=== PATIENT | male | born 1955 | race Caucasian/White ===

== ENCOUNTER 2018-04-24 17:04 | Emergency (ER) | payer OTHER ==
--- NOTE | 2018-04-24 18:54 | RAD REPORT ---
EXAM DESCRIPTION: RAD - Knee Left 3 View - 04/24/2018 6:44 pm CLINICAL HISTORY: PAIN History of fall COMPARISON: <Comparisons> FINDINGS: Small suprapatellar joint effusion is seen. No acute fracture or dislocation. Patellar ent hesophytes noted. IMPRESSION: No acute finding demonstrated. A small suprapatellar joint effusion is present.
--- NOTE | 2018-04-24 19:10 | ER ---
Nurse's Notes [facility] Name: Sumeet Chapman Age: 62 yrs Sex: Male : 1955 Arrival Date: 04/24/2018 Time: 17:05 Bed 14 Private MD: Diagnosis: Pain in left knee Presentation: 04/24 17:32 Presenting complaint: Patient states: I fell about a week ago, walking down some steps sg and the step was busted and made me fall down on my left knee. Transition of care: patient was not received from another setting of care. Onset of symptoms was April 24, 2018. Risk Assessment: Do you want to hurt yourself or someone else? Patient reports no desire to harm self or others. Initial Sepsis Screen: Does the patient have a suspected source of infection? No. Patient's initial sepsis screen is negative. Care prior to arrival: None. 17:32 Method Of Arrival: Ambulatory 17:32 Acuity: DAVE 4 sg Triage Assessment: 19:00 General: Appears in no apparent distress. comfortable, Behavior is calm, cooperative, jb4 appropriate for age. Historical: - Allergies: 17:09 SHELLFISH; sg - PMHx: 17:09 Diabetes - IDDM; DVT; Myocardial infarction; sg - PSHx: 17:09 CABG; sg - Immunization history:: Adult Immunizations up to date. - Social history:: Smoking status: Patient/guardian denies using tobacco. - Ebola Screening: : Patient negative for fever greater than or equal to 101.5 degrees Fahrenheit, and additional compatible Ebola Virus Disease symptoms Patient denies exposure to infectious person Patient denies travel to an Ebola-affected area in the 21 days before illness onset No symptoms or risks identified at this time. Screenin:00 Abuse screen: Denies threats or abuse. Nutritional screening: No deficits noted. jb4 Tuberculosis screening: No symptoms or risk factors identified. Fall Risk None identified. Assessment: 19:00 General: Appears in no apparent distress. comfortable, Behavior is calm, cooperative, jb4 appropriate for age. Pain: Complains of pain in medial aspect of left knee and left knee Pain does not radiate. Pain currently is 4 out of 10 on a pain scale. Quality of pain is described as throbbing, Pain began 2-3 days ago. Is intermittent. Neuro: Level of Consciousness is awake, alert, obeys commands, Oriented to person, place, time, situation. Cardiovascular: Patient's skin is warm and dry. Respiratory: Airway is patent Respiratory effort is even, unlabored, Respiratory pattern is regular, symmetrical. GI: No signs and/or symptoms were reported involving the gastrointestinal system. : No signs and/or symptoms were reported regarding the genitourinary system. EENT: No signs and/or symptoms were reported regarding the EENT system. Derm: Skin is intact, Skin is pink, warm \T\ dry. Musculoskeletal: Circulation, motion, and sensation intact. Vital Signs: 17:33 BP 149 / 71; Pulse 72; Resp 18; Temp 97.7; Pulse Ox 96% on R/A; Weight 140.61 kg (R); sg Height 6 ft. 1 in. (185.42 cm); Pain 7/10; 19:00 BP 151 / 78; Pulse 76; Resp 18; Pulse Ox 100% on R/A; jb4 17:33 Body Mass Index 40.90 (140.61 kg, 185.42 cm) ED Course: 17:05 Patient arrived in ED. mr 17:10 Arm band placed on. sg 17:33 Triage completed. sg 17:36 Sergio Bartlett PA is PHCP. cp 17:36 Kirk Martinez MD is Attending Physician. cp 18:44 XRAY Knee LEFT 3 view In Process Unspecified. EDMS 19:00 Patient has correct armband on for positive identification. Bed in low position. Call jb4 light in reach. Side rails up X 1. Pulse ox on. NIBP on. 19:00 No provider procedures requiring assistance completed. Patient did not have IV access jb4 during this emergency room visit. Crutch training done. Knee immobilizer applied on left knee. 19:01 Prem Gaming, RN is Primary Nurse. jb4 19:09 Isrrael Carrasco MD is Referral Physician. cp Administered Medications: No medications were administered Outcome: 19: Discharge ordered by . cp 19:25 Discharged to home ambulatory. jb4 19:25 Condition: stable 19:25 Discharge instructions given to patient, Instructed on discharge instructions, follow up and referral plans. crutch walking, Demonstrated understanding of instructions, follow-up care, crutch walking. 19:30 Patient left the ED. jb4 Signatures: Dispatcher [employer] EDMS Wayne Nunezen, RN RN sg Lencho, Yola mr Sergio Bartlett PA PA cp Bryson, James RN RN jb4
--- NOTE | 2018-04-24 19:10 | EDPHYS ---
Physician Documentation [facility] Name: Sumeet Chapman Age: 62 yrs Sex: Male : 1955 Arrival Date: 04/24/2018 Time: 17:05 Bed 14 Private MD: ED Physician Kirk Martinez HPI: 04/24 17:55 This 62 yrs old Male presents to ER via Ambulatory with complaints of Knee cp Pain. 17:55 The patient presents with an injury, pain, that is acute, swelling, tenderness. cp 17:55 The complaints affect the left knee. Context: resulted from the patient falling, down cp stairs, the patient can fully bear weight, the patient is able to ambulate, with moderate difficulty. Onset: The symptoms/episode began/occurred 1 week(s) ago. Modifying factors: the symptoms are aggravated by weight bearing, bending knee. Associated signs and symptoms: Pertinent positives: swelling, Pertinent negatives calf tenderness, numbness, tingling, warmth, weakness. Historical: - Allergies: 17:09 SHELLFISH; sg - PMHx: 17:09 Diabetes - IDDM; DVT; Myocardial infarction; sg - PSHx: 17:09 CABG; sg - Immunization history:: Adult Immunizations up to date. - Social history:: Smoking status: Patient/guardian denies using tobacco. - Ebola Screening: : Patient negative for fever greater than or equal to 101.5 degrees Fahrenheit, and additional compatible Ebola Virus Disease symptoms Patient denies exposure to infectious person Patient denies travel to an Ebola-affected area in the 21 days before illness onset No symptoms or risks identified at this time. ROS: 18:00 Constitutional: Negative for body aches, chills, fever. cp 18:00 Eyes: Negative for injury, pain, redness, and discharge. cp 18:00 ENT: Negative for drainage from ear(s), ear pain, sore throat, difficulty swallowing, difficulty handling secretions. 18:00 Cardiovascular: Negative for chest pain, palpitations. 18:00 Respiratory: Negative for cough, shortness of breath, wheezing. 18:00 Abdomen/GI: Negative for abdominal pain, vomiting, diarrhea, constipation. 18:00 Back: Negative for pain at rest, pain with movement. 18:00 MS/extremity: Positive for pain, swelling, tenderness, of the left knee, Negative for deformity, erythema, paresthesias, warmth. 18:00 Skin: Negative for cellulitis, rash. 18:00 Neuro: Negative for altered mental status, headache, weakness. 18:00 All other systems are negative. Exam: 18:08 Constitutional: The patient appears in no acute distress, alert, awake, non-toxic, well cp developed, well nourished. 18:08 Head/Face: Normocephalic, atraumatic. cp 18:08 Eyes: Periorbital structures: appear normal, Conjunctiva: normal, no exudate, no cp injection, Sclera: no appreciated abnormality, Lids and lashes: appear normal, bilaterally. 18:08 ENT: External ear(s): are unremarkable, Nose: is normal, Mouth: Lips: moist, Oral mucosa: moist, Posterior pharynx: is normal, airway is patent. 18:08 Neck: ROM/movement: is normal, is supple, without pain, no range of motions limitations, no nuchal rigidity. 18:08 Chest/axilla: Inspection: normal. 18:08 Cardiovascular: Rate: normal. 18:08 Respiratory: the patient does not display signs of respiratory distress, Respirations: normal. 18:08 Abdomen/GI: Exam negative for discomfort, distension, guarding, Inspection: abdomen cp appears normal. 18:08 Back: pain, is absent, ROM is normal. 18:08 Musculoskeletal/extremity: ROM: limited passive range of motion due to pain, in the left knee, Joints: the left knee displays painful range of motion, swelling, tenderness. 18:08 Skin: cellulitis, is not appreciated, no rash present. Vital Signs: 17:33 BP 149 / 71; Pulse 72; Resp 18; Temp 97.7; Pulse Ox 96% on R/A; Weight 140.61 kg (R); sg Height 6 ft. 1 in. (185.42 cm); Pain 7/10; 19:00 BP 151 / 78; Pulse 76; Resp 18; Pulse Ox 100% on R/A; jb4 17:33 Body Mass Index 40.90 (140.61 kg, 185.42 cm) sg MDM: 17:36 Patient medically screened. cp 18:00 Differential diagnosis: closed fracture, tendonitis, effusion, ligament injury. cp 19:07 Data reviewed: vital signs, nurses notes, radiologic studies, plain films. cp 19:07 Test interpretation: by ED physician or midlevel provider: plain radiologic studies. cp Counseling: I had a detailed discussion with the patient and/or guardian regarding: the historical points, exam findings, and any diagnostic results supporting the discharge/admit diagnosis, radiology results, the need for outpatient follow up, a orthopedic surgeon, to return to the emergency department if symptoms worsen or persist or if there are any questions or concerns that arise at home. 04/24 17:50 Order name: XRAY Knee LEFT 3 view cp 04/24 19:06 Order name: Knee Immobilizer; Complete Time: 19:30 cp 04/24 19: Order name: Crutches; Complete Time: : cp Administered Medications: No medications were administered Disposition: 04/24/18 19:09 Discharged to Home. Impression: Pain in left knee. - Condition is Stable. - Discharge Instructions: Elastic Bandage and RICE, Knee Immobilizer, Knee Pain. - Prescriptions for Anaprox DS 550 mg Oral Tablet - take 1 tablet by ORAL route every 12 hours As needed; 20 tablet. - Medication Reconciliation Form, Thank You Letter, Antibiotic Education, Prescription Opioid Use form. - Follow up: Isrrael Carrasco MD; When: 2 - 3 days; Reason: left knee pain. - Problem is new. - Symptoms have improved. Addendum: 05/02/2018 16:39 Co-signature as Attending Physician, Kirk Martinez MD. g s Signatures: Dispatcher [employer] EDMS Al Nunez RN RN sg Sergio Bartlett PA PA cp Prem Gaming RN RN jb4 Kirk Martinez MD MD Corrections: (The following items were deleted from the chart) 04/24 19:30 19:09 04/24/2018 19:09 Discharged to Home. Impression: Pain in left knee. Condition is jb4 Stable. Forms are Medication Reconciliation Form, Thank You Letter, Antibiotic Education, Prescription Opioid Use. Follow up: Isrrael Carrasco; When: 2 - 3 days; Reason: left knee pain. Problem is new. Symptoms have improved. cp
== END 2018-04-24 19:30 | disposition home or self-care (01) ==
LOC: ER 17:04
DX: M25.562 Pain in left knee (principal); I25.2 Old myocardial infarction; Z95.1 Presence of aortocoronary bypass graft; Z91.013 Allergy to seafood
CPT/HCPCS: 99283